=== PATIENT | female | born 1965 | race Caucasian/White ===

== ENCOUNTER 2018-09-17 21:15 | Emergency (ER) | payer OTHER ==
[~2018-09-17] VITALS: Ht 162.6 cm; Wt 104.3 kg
[~2018-09-17 21:15] MED LIST: ACID MED; ALBU3IS INH; ALBU90OI INH; ALBU90OI6 INH; ALBU90OI61 INH; AMLO10 PO; AZIT250 PO; AZIT500 PO; CEPH500 PO; CETI10 PO; CITA20 PO; CLIN300 PO; CODACE30 PO; Crutch1 EACH MISC; DICL25ER PO; DOCU100 PO; ERYT333ERA PO; FAMO20 PO; FLUSAL2505 IH; HYDACE5 PO; HYDACE5325 PO; HYDHCL25 PO; IBUP800 PO; KETO10 PO; LAVAP17G PO; META800 PO; METF500; METF500 PO; METF500C PO; METO10 PO; METO25ER PO; METO50 PO; METO50ER PO; Macrobid 100 M100 MG PO; Mobic7.5 MG PO; NAPR500 PO; NAPR550; Norco 5-325 Ta1 EACH PO; OFLO.3OPSO OP; OMEP20ER PO; ONDA4 PO; OXYACE5T PO; PANT20 PO; POLY17UD PO; PRED20 PO; PRED5 PO; PROACE100 PO; PROM25 PO; PSEU120ER PO; Prilosec Otc20 MG PO; Pyridium100 MG PO; RANI150 PO; RXCODACET PO; RXHYD5325 PO; RXHYDACE PO; RXPROACE PO; RXPROM25 PO; SIMV10 PO; SUCR1SU PO; Ultram50 MG PO; VARE1 PO; Vibramycin100 MG PO; XYZAL; Zithromax250 MG PO
[2018-09-18] MEDS ORDERED: ALBU90OI INH (00:44)
[2018-09-18] MEDS ORDERED: Norvasc5 MG PO (00:44)
== END 2018-09-18 00:57 | disposition home or self-care (01) ==
LOC: ER 21:15
DX: K59.00 Constipation, unspecified (principal); I11.9 Hypertensive heart disease without heart failure; I43 Cardiomyopathy in diseases classified elsewhere; E11.40 Type 2 diabetes mellitus with diabetic neuropathy, unspecified; Z88.0 Allergy status to penicillin; Z88.1 Allergy status to other antibiotic agents; Z88.8 Allergy status to other drugs, medicaments and biological substances; F17.200 Nicotine dependence, unspecified, uncomplicated
CPT/HCPCS: 74019; 99283-25

== ENCOUNTER 2018-10-22 14:02 | Emergency (ER) | payer OTHER ==
[~2018-10-22] VITALS: Ht 162.6 cm; Wt 84.8 kg
[~2018-10-22 14:02] MED LIST changes: +Norvasc5 MG PO
[2018-10-22] MEDS ORDERED: Chantix1 EACH (14:27)
[2018-10-22] MEDS ORDERED: SPIRIVA RESPIMAT4 GM IH (14:27)
[2018-10-22] MEDS ORDERED: ALBU90OI6 INH (14:27)
[2018-10-22] MEDS ORDERED: METF500C PO (14:27)
[2018-10-22 15:00] LABS: BASOPHILS ABSOLUTE AUTO 0.04 K/mm3 (0.00-0.23); BASOPHILS PERCENT AUTO 0 % (0-2); EOSINOPHILS ABSOLUTE AUTO 0.11 K/mm3 (0.00-0.68); EOSINOPHILS PERCENT AUTO 1 % (0-6); Hematocrit 44.1 % (33.0-51.0); Hemoglobin 14.7 g/dL (11.5-16.0); IMMATURE GRAN ABSOLUTE AUTO 0.04 K/mm3 (0.00-0.10); IMMATURE GRAN PERCENT AUTO 0 % (0-1); LYMPHOCYTES ABSOLUTE AUTO 1.79 K/mm3 (0.84-5.20); LYMPHOCYTES PERCENT AUTO 17 % (21-46); MONOCYTES ABSOLUTE AUTO 0.82 K/mm3 (0.16-1.47); MONOCYTES PERCENT AUTO 8 % (4-13); Mean Corpuscular HGB 29.1 pg (26.0-34.0); Mean Corpuscular HGB Conc 33.3 g/dL (31.5-36.5); Mean Corpuscular Volume 87 fL (80-100); Mean Platelet Volume 11.9 fL (9.1-12.4); NEUTROPHILS ABSOLUTE AUTO 8.05 K/mm3 (1.96-9.15); NEUTROPHILS PERCENT AUTO 74 % (41-73); Platelet Count 212 K/mm3 (150-400); RDW Coefficient Variation 14.1 % (11.7-14.2); RDW Standard Deviation 44.9 fL (35.1-46.3); Red Blood Cell Count 5.06 M/mm3 (3.80-5.20); White Blood Cell Count 10.85 K/mm3 (4.00-11.30)
[2018-10-22 15:11] LABS: Troponin I <0.015 ng/mL (0.000-0.040)
[2018-10-22 15:12] LABS: Alanine Aminotransfer (ALT/SGP 24 U/L (12-78); Albumin, Blood 3.8 g/dL (3.4-5.0); Alk Phos 93 U/L (50-136); Anion Gap 11 mmol/L (6-16); Aspartate Aminotrans (AST/SGOT 19 U/L (12-37); Bilirubin, Total 0.3 mg/dL (0.1-1.0); Blood Urea Nitrogen 10 mg/dL (8-24); Bun/Creatinine Ratio 12.2 (12.0-20.0); CO2, Blood 22 mmol/L (21-32); Calcium, Blood 8.5 mg/dL (8.5-10.1); Chloride, Blood 106 mmol/L (98-108); Creatinine, Blood 0.82 mg/dL (0.40-1.00); Glomerular Filtration Rate >60 (60-); Glucose, Blood 205 mg/dL (70-99); Potassium, Blood 3.3 mmol/L (3.5-5.5); Sodium, Blood 139 mmol/L (136-145); Total Protein, Blood 7.8 g/dL (6.4-8.2)
[2018-10-22 16:26] LABS: Source, Urine Voided
[2018-10-22 16:31] LABS: Bilirubin, Urine Neg (Neg); Blood, Urine Neg (Neg); Glucose Qualitative, Urine 1+ (Neg); Ketones, Urine Neg (Neg); Leukocyte Esterase, Urine Neg (Neg); Nitrite, Urine Neg (Neg); Protein, Urine Neg (Neg); Specific Gravity, Urine 1.015 (1.003-1.022); Urobilinogen, Urine NORM (Normal)
[2018-10-22 16:47] LABS: Appearance, Urine Clear (Clear); Color, Urine Yellow (P-Yellow)
[2018-10-22] MEDS ORDERED: OMEPRAZOLE MAGN20 MG PO (18:25)
== END 2018-10-22 18:45 | disposition home or self-care (01) ==
LOC: ER 14:02
PROVIDERS: Emergency Medicine
DX: R07.9 Chest pain, unspecified (principal); E11.40 Type 2 diabetes mellitus with diabetic neuropathy, unspecified; J44.9 Chronic obstructive pulmonary disease, unspecified; I11.9 Hypertensive heart disease without heart failure; I43 Cardiomyopathy in diseases classified elsewhere; F17.210 Nicotine dependence, cigarettes, uncomplicated; Z87.11 Personal history of peptic ulcer disease; Z88.0 Allergy status to penicillin; Z88.1 Allergy status to other antibiotic agents; Z88.8 Allergy status to other drugs, medicaments and biological substances; Z79.899 Other long term (current) drug therapy; Z79.84 Long term (current) use of oral hypoglycemic drugs
CPT/HCPCS: 36415; 71046; 80053; 81003; 83690; 83880; 84484; 85025; 93005; 93010; 96361; 96374; 99285-25; J2405; J7030

== ENCOUNTER 2018-12-02 08:42 | Day surgery (SDC) | payer OTHER ==
[~2018-12-02] VITALS: Ht 162.6 cm; Wt 107.7 kg
[~2018-12-02 08:42] MED LIST changes: +Chantix1 EACH; +OMEPRAZOLE MAGN20 MG PO; +SPIRIVA RESPIMAT4 GM IH
== END 2018-12-02 11:02 | disposition home or self-care (01) ==
LOC: ORSCSDS 08:42
PROVIDERS: Surgery
PROC: 0DBK8ZX Excision of Ascending Colon, Via Natural or Artificial Opening Endoscopic, Diagnostic (ICD-10-PCS; principal; 2018-12-02 10:15)
DX: R19.4 Change in bowel habit (principal); D12.2 Benign neoplasm of ascending colon; Z80.0 Family history of malignant neoplasm of digestive organs; E11.9 Type 2 diabetes mellitus without complications; I10 Essential (primary) hypertension; E66.9 Obesity, unspecified; Z68.39 Body mass index [BMI] 39.0-39.9, adult; K21.9 Gastro-esophageal reflux disease without esophagitis; J44.9 Chronic obstructive pulmonary disease, unspecified; E66.01 Morbid (severe) obesity due to excess calories; Z68.41 Body mass index [BMI] 40.0-44.9, adult; F17.210 Nicotine dependence, cigarettes, uncomplicated; Z79.899 Other long term (current) drug therapy
CPT/HCPCS: 82947; 88305; J2250; J2704; J7120

== ENCOUNTER 2019-02-05 19:30 | Emergency (ER) | payer OTHER ==
[~2019-02-05] VITALS: Ht 165.1 cm; Wt 83.9 kg
[2019-02-05] MEDS ORDERED: Norco 5-325 Ta1 EACH PO (21:56)
== END 2019-02-05 22:35 | disposition home or self-care (01) ==
LOC: ER 19:30
DX: M25.561 Pain in right knee (principal); M79.661 Pain in right lower leg; Z88.1 Allergy status to other antibiotic agents; Z88.0 Allergy status to penicillin; Z88.5 Allergy status to narcotic agent; Z79.899 Other long term (current) drug therapy; Z79.84 Long term (current) use of oral hypoglycemic drugs; E11.9 Type 2 diabetes mellitus without complications; J44.9 Chronic obstructive pulmonary disease, unspecified; I10 Essential (primary) hypertension; F17.210 Nicotine dependence, cigarettes, uncomplicated
CPT/HCPCS: 93971; 99283-25; A9270-GY

== ENCOUNTER 2019-05-07 12:04 | Emergency (ER) | payer OTHER ==
[~2019-05-07] VITALS: Ht 165.1 cm; Wt 104.3 kg
[2019-05-07] MEDS ORDERED: Cipro500 MG PO (12:24)
[2019-05-07] MEDS ORDERED: TRAM50 PO (12:25)
== END 2019-05-07 13:02 | disposition home or self-care (01) ==
LOC: ER 12:04
DX: K04.7 Periapical abscess without sinus (principal); K02.9 Dental caries, unspecified; E11.40 Type 2 diabetes mellitus with diabetic neuropathy, unspecified; I10 Essential (primary) hypertension; J44.9 Chronic obstructive pulmonary disease, unspecified; F17.210 Nicotine dependence, cigarettes, uncomplicated; Z88.8 Allergy status to other drugs, medicaments and biological substances; Z88.0 Allergy status to penicillin; Z88.1 Allergy status to other antibiotic agents; Z79.899 Other long term (current) drug therapy; Z79.84 Long term (current) use of oral hypoglycemic drugs; Z79.51 Long term (current) use of inhaled steroids
CPT/HCPCS: 64400; 96372-59; 99282-25; J1885

== ENCOUNTER 2019-06-18 19:04 | Inpatient (IN) | payer OTHER ==
[~2019-06-18] VITALS: Ht 167.6 cm; Wt 106.9 kg
[~2019-06-18 19:04] MED LIST changes: +Cipro500 MG PO; +TRAM50 PO
[2019-06-18 20:19] LABS: BASOPHILS ABSOLUTE AUTO 0.06 K/mm3 (0.00-0.23); BASOPHILS PERCENT AUTO 1 % (0-2); EOSINOPHILS ABSOLUTE AUTO 0.17 K/mm3 (0.00-0.68); EOSINOPHILS PERCENT AUTO 2 % (0-6); Hematocrit 41.4 % (33.0-51.0); Hemoglobin 13.4 g/dL (11.5-16.0); IMMATURE GRAN ABSOLUTE AUTO 0.07 K/mm3 (0.00-0.10); IMMATURE GRAN PERCENT AUTO 1 % (0-1); LYMPHOCYTES ABSOLUTE AUTO 2.72 K/mm3 (0.84-5.20); LYMPHOCYTES PERCENT AUTO 24 % (21-46); MONOCYTES ABSOLUTE AUTO 0.99 K/mm3 (0.16-1.47); MONOCYTES PERCENT AUTO 9 % (4-13); Mean Corpuscular HGB 28.2 pg (26.0-34.0); Mean Corpuscular HGB Conc 32.4 g/dL (31.5-36.5); Mean Corpuscular Volume 87 fL (80-100); Mean Platelet Volume 12.2 fL (9.1-12.4); NEUTROPHILS ABSOLUTE AUTO 7.35 K/mm3 (1.96-9.15); NEUTROPHILS PERCENT AUTO 65 % (41-73); Platelet Count 242 K/mm3 (150-400); RDW Coefficient Variation 15.2 % (11.7-14.2); RDW Standard Deviation 48.4 fL (35.1-46.3); Red Blood Cell Count 4.76 M/mm3 (3.80-5.20); White Blood Cell Count 11.36 K/mm3 (4.00-11.30)
[2019-06-18 20:33] LABS: Alanine Aminotransfer (ALT/SGP 21 U/L (12-78); Albumin, Blood 3.4 g/dL (3.4-5.0); Albumin/Globulin Ratio 0.9 (0.8-1.8); Alk Phos 78 U/L (50-136); Anion Gap 7 mmol/L (6-16); Aspartate Aminotrans (AST/SGOT 19 U/L (12-37); Bilirubin, Total 0.3 mg/dL (0.1-1.0); Blood Urea Nitrogen 10 mg/dL (8-24); CO2, Blood 25 mmol/L (21-32); Calcium, Blood 8.3 mg/dL (8.5-10.1); Chloride, Blood 107 mmol/L (98-108); Creatinine, Blood 0.77 mg/dL (0.40-1.00); Globulin, Blood 3.8 g/dL (2.2-4.0); Glomerular Filtration Rate >60 (60-); Glucose, Blood 212 mg/dL (70-99); Potassium, Blood 3.6 mmol/L (3.5-5.5); Sodium, Blood 139 mmol/L (136-145); Total Protein, Blood 7.2 g/dL (6.4-8.2)
--- NOTE | 2019-06-19 01:41 | NUR ---
06/19/19 0129 PT C/O MID-STERNAL CHEST PAIN AND REFUSED ANY MORE NTG. SHE STATED THE ER TOLD HER SHE WOULD GET IV PAIN MEDICINE WHEN SHE ARRIVED ON MEDICAL FLOOR. PT VERY ANGRY. RN GAVE IV FENTANYL PER JUL. PT THEN C/O NAUSEA AND WAS MEDICATED PER JUL.
--- NOTE | 2019-06-19 03:20 | NUR ---
06/19/19 0310 PT AWAKE AND MEDICATED FOR NAUSEA WITH NEW MED PER JUL. STATES CHEST DISCOMFORT BETTER AT "5" NOW. PT HAD REFUSED ANY FURTHER NITROGYLERINE GIVEN. RESTING IN BED. DOZING OFF.
[2019-06-19 04:55] LABS: Hematocrit 43.6 % (33.0-51.0); Hemoglobin 14.1 g/dL (11.5-16.0); Mean Corpuscular HGB 28.1 pg (26.0-34.0); Mean Corpuscular HGB Conc 32.3 g/dL (31.5-36.5); Mean Corpuscular Volume 87 fL (80-100); Mean Platelet Volume 11.3 fL (9.1-12.4); Platelet Count 253 K/mm3 (150-400); RDW Standard Deviation 48.1 fL (35.1-46.3); Red Blood Cell Count 5.02 M/mm3 (3.80-5.20); White Blood Cell Count 14.98 K/mm3 (4.00-11.30)
[2019-06-19 05:20] LABS: Alanine Aminotransfer (ALT/SGP 24 U/L (12-78); Albumin, Blood 3.5 g/dL (3.4-5.0); Albumin/Globulin Ratio 0.8 (0.8-1.8); Alk Phos 87 U/L (50-136); Anion Gap 7 mmol/L (6-16); Aspartate Aminotrans (AST/SGOT 55 U/L (12-37); Bilirubin, Total 0.3 mg/dL (0.1-1.0); Blood Urea Nitrogen 9 mg/dL (8-24); Bun/Creatinine Ratio 14.5 (12.0-20.0); CO2, Blood 21 mmol/L (21-32); Calcium, Blood 8.4 mg/dL (8.5-10.1); Chloride, Blood 108 mmol/L (98-108); Creatinine, Blood 0.62 mg/dL (0.40-1.00); Globulin, Blood 4.4 g/dL (2.2-4.0); Glomerular Filtration Rate >60 (60-); Glucose, Blood 207 mg/dL (70-99); Potassium, Blood 3.8 mmol/L (3.5-5.5); Sodium, Blood 136 mmol/L (136-145); Total Protein, Blood 7.9 g/dL (6.4-8.2)
[2019-06-19 05:49] LABS: Troponin I 3.2 ng/mL (0.000-0.040)
--- NOTE | 2019-06-19 06:03 | NUR ---
PT HAD REFUSED HER AM LAB DRAW. THIS RN WENT AND SPOKE TO PT AND ASKED HER WHY. PT STATED SHE HAD JUST WOKE UP AND WAS NOT SURE WHAT WAS GOING ON. PT DI AGREE AGREE TO HAVE LAB DRAW AND WAS EXPLAINED OF THE IMPORTANCE OF LAB TEST. PT ALSO AGREED TO TAKE SOME MALLOX IN ATTEMPT TO REDUCE GASTRIC DISCOMFORT. THIS EVENT OCCURED AT 0430 HRS.
[2019-06-19 06:06] LABS: Creatine Kinase MB 39.9 ng/mL (0.0-3.6); Creatine Kinase MB Index 13.6 (0.0-4.0)
--- NOTE | 2019-06-19 07:04 | NUR ---
06/19/19 0648 TRANSFERRED VIA BED TO PCU 4 PER MD ORDER. INFORMED PT PRIOR OF TRANSFER AND REASONS WHY. PT STATES CHEST DISCOMFORT AT LEVEL "3" NOW. REPORT GIVEN TO [employer]. SEE NEW ORDERS.
--- NOTE | 2019-06-19 07:25 | NUR ---
RECEIVED REPORT FROM [facility] RN. PT TRANSPORTED TO PCU. REPORT GIVEN TO BRIDGETT ALLRED RN. PT MADE COMFORTABLE, CALL LIGHT AND POSSESSIONS IN REACH.
[2019-06-19 07:42] LABS: International Normalized Ratio 0.96; Prothrombin Time Results 10.3 Sec (9.7-11.5)
--- NOTE | 2019-06-19 17:58 | NUR ---
PCU DAYSHIFT SUMMARY PATIENT ALERT AND ORIENTED X4 T/O SHIFT. RESP E/U ON ROOM AIR. PATIENT REMAINS IN NSR WITH NO CARDIAC EVENTS POST CATH. HR 70'S. PATIENT RECIEVED [address] [facility]. RIGHT RADIAL SITE HAS MILD BRUISING NOTED PROXIMAL TO SITE. PATIENT REMAINS ON ROOM AIR WITH STAND BY TO BATHROOM. PATIENT EDUCATED ON SMOKING CESSATION. PATIENT DENIES ANY PAIN POST CATH. WILL CONTINUE TO MONITOR AND GIVE REPORT TO NOC SHIFT RN.
--- NOTE | 2019-06-19 19:25 | NUR ---
RECEIVED REPORT FROM SHANAE ALLRED. ASSUMED CARE OF PT. RESTING IN BED COMFORTABLY, IN NO ACUTE DISTRESS. DENIES CHEST PAIN, SOB. DENIES ANY NEEDS AT THIS TIME. CALL LIGHT AND POSSESSIONS IN REACH. WILL CONTINUE TO MONITOR.
[2019-06-20 04:13] LABS: BASOPHILS ABSOLUTE AUTO 0.03 K/mm3 (0.00-0.23); BASOPHILS PERCENT AUTO 0 % (0-2); EOSINOPHILS ABSOLUTE AUTO 0.09 K/mm3 (0.00-0.68); EOSINOPHILS PERCENT AUTO 1 % (0-6); Hematocrit 38.7 % (33.0-51.0); Hemoglobin 12.4 g/dL (11.5-16.0); IMMATURE GRAN ABSOLUTE AUTO 0.04 K/mm3 (0.00-0.10); IMMATURE GRAN PERCENT AUTO 1 % (0-1); LYMPHOCYTES ABSOLUTE AUTO 2.54 K/mm3 (0.84-5.20); LYMPHOCYTES PERCENT AUTO 29 % (21-46); MONOCYTES ABSOLUTE AUTO 0.89 K/mm3 (0.16-1.47); MONOCYTES PERCENT AUTO 10 % (4-13); Mean Corpuscular HGB 27.9 pg (26.0-34.0); Mean Corpuscular Volume 87 fL (80-100); Mean Platelet Volume 11.5 fL (9.1-12.4); NEUTROPHILS ABSOLUTE AUTO 5.17 K/mm3 (1.96-9.15); NEUTROPHILS PERCENT AUTO 59 % (41-73); Platelet Count 213 K/mm3 (150-400); RDW Coefficient Variation 15.1 % (11.7-14.2); RDW Standard Deviation 48.4 fL (35.1-46.3); Red Blood Cell Count 4.44 M/mm3 (3.80-5.20); White Blood Cell Count 8.76 K/mm3 (4.00-11.30)
[2019-06-20 04:28] LABS: Anion Gap 5 mmol/L (6-16); Blood Urea Nitrogen 10 mg/dL (8-24); Bun/Creatinine Ratio 12.8 (12.0-20.0); CO2, Blood 26 mmol/L (21-32); Calcium, Blood 8.1 mg/dL (8.5-10.1); Chloride, Blood 111 mmol/L (98-108); Creatinine, Blood 0.78 mg/dL (0.40-1.00); Glomerular Filtration Rate >60 (60-); Glucose, Blood 90 mg/dL (70-99); Potassium, Blood 3.6 mmol/L (3.5-5.5); Sodium, Blood 142 mmol/L (136-145)
--- NOTE | 2019-06-20 06:41 | NUR ---
PT RESTING IN BED COMFORTABLY, IN NO ACUTE DISTRESS. SLEPT T/O NIGHT. WAS MONITORED EVERY 1-2 HOURS WITH NEEDS MET, DENIES ANY NEEDS AT THIS TIME. CALL LIGHT AND POSSESSIONS IN REACH.
[2019-06-20] MEDS ORDERED: CLOP75 PO (09:40)
[2019-06-20] MEDS ORDERED: ASPI81CH PO (09:40)
[2019-06-20] MEDS ORDERED: LOSA25 PO (09:41)
[2019-06-20] MEDS ORDERED: NICO21TP TOP (09:41)
[2019-06-20] MEDS ORDERED: ATORVASTATIN CA40 M1 PO (09:42)
[2019-06-20] MEDS ORDERED: NITR.4SL SL (09:42)
[2019-06-20] MEDS ORDERED: METO25ER PO (09:43)
--- NOTE | 2019-06-20 12:39 | NUR ---
D/C D/C TO HOME WITH . PT IS A&O X4, VSS, RESP UNLABORED, DENIES CP/SOB AT THIS TIME. D/C INSTRUCTIONS PROVIDED, RX CALLED INTO PHARMACY OF CHOICE BY BREAST SPLITTER, PT ENC TO F/U ALINE FOR ANY PROBLEMS OR CONCERNS. PT ESCORTED TO PRIVATE VEHICLE VIA W/C.
== END 2019-06-20 11:48 | disposition home or self-care (01) | DRG 247 ==
LOC: ER 19:04 → MEDS 19:05 → PCU 06-19 06:58
PROVIDERS: Emergency Medicine; Internal Medicine; ADMIT Internal Medicine
PROC: 4A023N7 Measurement of Cardiac Sampling and Pressure, Left Heart, Percutaneous Approach (ICD-10-PCS; principal; 2019-06-19)
PROC: 027034Z Dilation of Coronary Artery, One Artery with Drug-eluting Intraluminal Device, Percutaneous Approach (ICD-10-PCS; 2019-06-19)
PROC: B211YZZ Fluoroscopy of Multiple Coronary Arteries using Other Contrast (ICD-10-PCS; 2019-06-19)
DX: I21.3 ST elevation (STEMI) myocardial infarction of unspecified site (principal); I42.9 Cardiomyopathy, unspecified; I10 Essential (primary) hypertension; I25.110 Atherosclerotic heart disease of native coronary artery with unstable angina pectoris; E11.40 Type 2 diabetes mellitus with diabetic neuropathy, unspecified; F17.210 Nicotine dependence, cigarettes, uncomplicated; Z79.82 Long term (current) use of aspirin
CPT/HCPCS: 36415; 71046; 80048; 80053; 82550; 82553; 82947; 84484; 85025; 85027; 85347; 85610; 85730; 93005; 93010; 93454; 96361; 96374; 96375; 96376; 99152; 99153; 99285-25; A9270-GY; C1725; C1751; C1769; C1874; C1887; C1894; C9600; G0378; J0360; J1644; J2250; J2405; J2765; J3010; J7030; Q9967

== ENCOUNTER 2019-06-29 22:21 | Emergency (ER) | payer OTHER ==
[~2019-06-29] VITALS: Ht 167.6 cm; Wt 107.0 kg
[~2019-06-29 22:21] MED LIST changes: +ASPI81CH PO; +ATORVASTATIN CA40 M1 PO; +CLOP75 PO; +LOSA25 PO; +NICO21TP TOP; +NITR.4SL SL
[2019-06-29 23:04] LABS: BASOPHILS ABSOLUTE AUTO 0.05 K/mm3 (0.00-0.23); BASOPHILS PERCENT AUTO 1 % (0-2); EOSINOPHILS ABSOLUTE AUTO 0.15 K/mm3 (0.00-0.68); EOSINOPHILS PERCENT AUTO 2 % (0-6); Hemoglobin 12.9 g/dL (11.5-16.0); IMMATURE GRAN ABSOLUTE AUTO 0.06 K/mm3 (0.00-0.10); IMMATURE GRAN PERCENT AUTO 1 % (0-1); LYMPHOCYTES PERCENT AUTO 21 % (21-46); MONOCYTES ABSOLUTE AUTO 0.83 K/mm3 (0.16-1.47); MONOCYTES PERCENT AUTO 8 % (4-13); Mean Corpuscular HGB 28.1 pg (26.0-34.0); Mean Corpuscular HGB Conc 32.3 g/dL (31.5-36.5); Mean Corpuscular Volume 87 fL (80-100); NEUTROPHILS ABSOLUTE AUTO 6.74 K/mm3 (1.96-9.15); NEUTROPHILS PERCENT AUTO 68 % (41-73); RDW Coefficient Variation 14.7 % (11.7-14.2); RDW Standard Deviation 47.3 fL (35.1-46.3); Red Blood Cell Count 4.59 M/mm3 (3.80-5.20); White Blood Cell Count 9.93 K/mm3 (4.00-11.30)
[2019-06-29 23:05] LABS: Mean Platelet Volume 11.8 fL (9.1-12.4); Platelet Count 210 K/mm3 (150-400)
[2019-06-29 23:15] LABS: Alanine Aminotransfer (ALT/SGP 15 U/L (12-78); Albumin, Blood 3.2 g/dL (3.4-5.0); Albumin/Globulin Ratio 0.7 (0.8-1.8); Alk Phos 89 U/L (50-136); Anion Gap 6 mmol/L (6-16); Aspartate Aminotrans (AST/SGOT 23 U/L (12-37); Bilirubin, Total 0.3 mg/dL (0.1-1.0); Blood Urea Nitrogen 14 mg/dL (8-24); Bun/Creatinine Ratio 16.5 (12.0-20.0); CO2, Blood 29 mmol/L (21-32); Calcium, Blood 8.7 mg/dL (8.5-10.1); Chloride, Blood 106 mmol/L (98-108); Creatinine, Blood 0.85 mg/dL (0.40-1.00); Globulin, Blood 4.3 g/dL (2.2-4.0); Glomerular Filtration Rate >60 (60-); Glucose, Blood 158 mg/dL (70-99); Potassium, Blood 4.1 mmol/L (3.5-5.5); Sodium, Blood 141 mmol/L (136-145); Total Protein, Blood 7.5 g/dL (6.4-8.2); Troponin I 0.048 ng/mL (0.000-0.040)
== END 2019-06-30 03:18 | disposition home or self-care (01) ==
LOC: ER 22:21
PROVIDERS: Emergency Medicine
DX: R07.9 Chest pain, unspecified (principal); E11.40 Type 2 diabetes mellitus with diabetic neuropathy, unspecified; J44.9 Chronic obstructive pulmonary disease, unspecified; I10 Essential (primary) hypertension; I42.9 Cardiomyopathy, unspecified; F17.210 Nicotine dependence, cigarettes, uncomplicated; Z79.84 Long term (current) use of oral hypoglycemic drugs; Z79.51 Long term (current) use of inhaled steroids; Z79.899 Other long term (current) drug therapy; Z88.0 Allergy status to penicillin; Z88.1 Allergy status to other antibiotic agents; Z88.5 Allergy status to narcotic agent; Z88.8 Allergy status to other drugs, medicaments and biological substances
CPT/HCPCS: 36415; 80053; 84484; 85025; 93005; 93010; 96374; 96375; 99285-25; J2270; J2405

== ENCOUNTER 2019-07-05 18:13 | Emergency (ER) | payer OTHER ==
[~2019-07-05] VITALS: Ht 167.6 cm; Wt 105.2 kg
[2019-07-05] MEDS ORDERED: Norco 5-325 Ta1 EACH PO (19:57)
== END 2019-07-05 20:10 | disposition home or self-care (01) ==
LOC: ER 18:13
DX: I82.612 Acute embolism and thrombosis of superficial veins of left upper extremity (principal); E11.40 Type 2 diabetes mellitus with diabetic neuropathy, unspecified; K21.9 Gastro-esophageal reflux disease without esophagitis; E78.5 Hyperlipidemia, unspecified; J44.9 Chronic obstructive pulmonary disease, unspecified; F17.210 Nicotine dependence, cigarettes, uncomplicated; Z79.899 Other long term (current) drug therapy; Z88.0 Allergy status to penicillin; Z88.5 Allergy status to narcotic agent; Z79.84 Long term (current) use of oral hypoglycemic drugs
CPT/HCPCS: 93971; 99283-25

== ENCOUNTER 2019-12-18 19:24 | Emergency (ER) | payer OTHER ==
[~2019-12-18] VITALS: Ht 167.6 cm; Wt 106.1 kg
[2019-12-18] MEDS ORDERED: KETO10 PO (20:05)
[2019-12-18] MEDS ORDERED: Cipro500 MG PO (20:05)
== END 2019-12-18 20:31 | disposition home or self-care (01) ==
LOC: ER 19:24
DX: K02.9 Dental caries, unspecified (principal); K03.81 Cracked tooth; Z88.0 Allergy status to penicillin; Z88.1 Allergy status to other antibiotic agents; Z88.5 Allergy status to narcotic agent; Z88.8 Allergy status to other drugs, medicaments and biological substances; Z79.84 Long term (current) use of oral hypoglycemic drugs; Z79.899 Other long term (current) drug therapy; Z79.82 Long term (current) use of aspirin; Z79.02 Long term (current) use of antithrombotics/antiplatelets; Z79.2 Long term (current) use of antibiotics; E11.40 Type 2 diabetes mellitus with diabetic neuropathy, unspecified; J44.9 Chronic obstructive pulmonary disease, unspecified; I11.9 Hypertensive heart disease without heart failure; I43 Cardiomyopathy in diseases classified elsewhere; F17.210 Nicotine dependence, cigarettes, uncomplicated
CPT/HCPCS: 96374; 99282-25; J1885

== ENCOUNTER 2020-04-03 11:43 | Emergency (ER) | payer OTHER ==
[~2020-04-03] VITALS: Ht 167.6 cm; Wt 96.6 kg
[2020-04-03 13:10] LABS: BASOPHILS ABSOLUTE AUTO 0.05 K/mm3 (0.00-0.23); BASOPHILS PERCENT AUTO 1 % (0-2); EOSINOPHILS ABSOLUTE AUTO 0.16 K/mm3 (0.00-0.68); EOSINOPHILS PERCENT AUTO 2 % (0-6); Hematocrit 28.7 % (33.0-51.0); Hemoglobin 7.7 g/dL (11.5-16.0); IMMATURE GRAN ABSOLUTE AUTO 0.03 K/mm3 (0.00-0.10); IMMATURE GRAN PERCENT AUTO 0 % (0-1); LYMPHOCYTES ABSOLUTE AUTO 1.87 K/mm3 (0.84-5.20); LYMPHOCYTES PERCENT AUTO 26 % (21-46); MONOCYTES ABSOLUTE AUTO 0.74 K/mm3 (0.16-1.47); MONOCYTES PERCENT AUTO 10 % (4-13); Mean Corpuscular HGB 18.4 pg (26.0-34.0); Mean Corpuscular HGB Conc 26.8 g/dL (31.5-36.5); Mean Corpuscular Volume 69 fL (80-100); NEUTROPHILS ABSOLUTE AUTO 4.45 K/mm3 (1.96-9.15); NEUTROPHILS PERCENT AUTO 61 % (41-73); Platelet Count 239 K/mm3 (150-400); RDW Coefficient Variation 20.2 % (11.7-14.2); RDW Standard Deviation 49.2 fL (35.1-46.3); Red Blood Cell Count 4.18 M/mm3 (3.80-5.20)
[2020-04-03 13:11] LABS: Mean Platelet Volume 10.4 fL (9.1-12.4)
[2020-04-03 13:25] LABS: Alanine Aminotransfer (ALT/SGP 14 U/L (12-78); Albumin, Blood 3.5 g/dL (3.4-5.0); Albumin/Globulin Ratio 0.8 (0.8-1.8); Alk Phos 93 U/L (50-136); Anion Gap 3 mmol/L (6-16); Aspartate Aminotrans (AST/SGOT 17 U/L (12-37); Bilirubin, Total 0.4 mg/dL (0.1-1.0); Blood Urea Nitrogen 11 mg/dL (8-24); Bun/Creatinine Ratio 12.9 (12.0-20.0); CO2, Blood 30 mmol/L (21-32); Calcium, Blood 9.2 mg/dL (8.5-10.1); Chloride, Blood 109 mmol/L (98-108); Creatinine, Blood 0.86 mg/dL (0.40-1.00); Globulin, Blood 4.3 g/dL (2.2-4.0); Glomerular Filtration Rate >60 (60-); Glucose, Blood 101 mg/dL (70-99); Potassium, Blood 3.8 mmol/L (3.5-5.5); Sodium, Blood 142 mmol/L (136-145); Total Protein, Blood 7.8 g/dL (6.4-8.2); Troponin I <0.015 ng/mL (0.000-0.040)
[2020-04-03] MEDS ORDERED: TIZA4 PO (16:34)
[2020-04-03] MEDS ORDERED: ACET500 PO (16:34)
== END 2020-04-03 16:59 | disposition home or self-care (01) ==
LOC: ER 11:43
PROVIDERS: Physician Assistant
DX: M54.12 Radiculopathy, cervical region (principal); E11.40 Type 2 diabetes mellitus with diabetic neuropathy, unspecified; K21.9 Gastro-esophageal reflux disease without esophagitis; E78.5 Hyperlipidemia, unspecified; F17.210 Nicotine dependence, cigarettes, uncomplicated; Z79.899 Other long term (current) drug therapy; Z79.82 Long term (current) use of aspirin; Z79.02 Long term (current) use of antithrombotics/antiplatelets; Z79.84 Long term (current) use of oral hypoglycemic drugs
CPT/HCPCS: 36415; 71046; 80053; 84484; 85025; 93005; 93010; 99283-25; A9270

== ENCOUNTER 2020-04-21 20:27 | Observation (INO) | payer OTHER ==
[~2020-04-21] VITALS: Ht 167.6 cm; Wt 102.1 kg
[~2020-04-21 20:27] MED LIST changes: +ACET500 PO; -ASPI81CH PO; +Aspirin EC81 MG PO; +TIZA4 PO
[2020-04-21 20:46] LABS: BASOPHILS ABSOLUTE AUTO 0.05 K/mm3 (0.00-0.23); BASOPHILS PERCENT AUTO 0 % (0-2); EOSINOPHILS PERCENT AUTO 1 % (0-6); Hematocrit 26.5 % (33.0-51.0); IMMATURE GRAN ABSOLUTE AUTO 0.08 K/mm3 (0.00-0.10); IMMATURE GRAN PERCENT AUTO 1 % (0-1); LYMPHOCYTES ABSOLUTE AUTO 1.61 K/mm3 (0.84-5.20); LYMPHOCYTES PERCENT AUTO 14 % (21-46); MONOCYTES ABSOLUTE AUTO 0.73 K/mm3 (0.16-1.47); MONOCYTES PERCENT AUTO 6 % (4-13); Mean Corpuscular HGB 18.3 pg (26.0-34.0); Mean Corpuscular HGB Conc 26.4 g/dL (31.5-36.5); Mean Corpuscular Volume 69 fL (80-100); Mean Platelet Volume 10.5 fL (9.1-12.4); NEUTROPHILS ABSOLUTE AUTO 9.34 K/mm3 (1.96-9.15); NEUTROPHILS PERCENT AUTO 79 % (41-73); Platelet Count 253 K/mm3 (150-400); RDW Coefficient Variation 21.3 % (11.7-14.2); RDW Standard Deviation 52.9 fL (35.1-46.3); Red Blood Cell Count 3.82 M/mm3 (3.80-5.20); White Blood Cell Count 11.91 K/mm3 (4.00-11.30)
[2020-04-21 21:00] LABS: Bun/Creatinine Ratio 12.8 (12.0-20.0); Calcium, Blood 8.6 mg/dL (8.5-10.1); Creatinine, Blood 1.09 mg/dL (0.40-1.00); Potassium, Blood 3.6 mmol/L (3.5-5.5)
[2020-04-21 21:16] LABS: Source, Urine Clean Catch
[2020-04-21 21:19] LABS: Appearance, Urine Clear (Clear); Bilirubin, Urine Neg (Neg); Blood, Urine Neg (Neg); Color, Urine Yellow (P-Yellow); Glucose Qualitative, Urine Neg (Neg); Ketones, Urine Neg (Neg); Leukocyte Esterase, Urine Neg (Neg); Nitrite, Urine Neg (Neg); Protein, Urine 2+ (Neg); Specific Gravity, Urine 1.015 (1.003-1.022); Urobilinogen, Urine NORM (Normal)
[2020-04-21 21:25] LABS: Bacteria Rare /hpf; Mucus Light (0-Heavy); Red Blood Cells, Urine 0-2 /hpf (0-2); Squamous Epithelial Cells Few /hpf (Few); White Blood Cells, Urine 0-2 /hpf (0-5)
[2020-04-21 21:36] LABS: Albumin, Blood 3.4 g/dL (3.4-5.0); Albumin/Globulin Ratio 0.8 (0.8-1.8); Bilirubin, Direct 0.1 mg/dL (0.0-0.3); Bilirubin, Indirect 0.3 mg/dL (0.1-0.7); Bilirubin, Total 0.4 mg/dL (0.1-1.0); Total Protein, Blood 7.4 g/dL (6.4-8.2)
[2020-04-21] MEDS ORDERED: OMEP20ER PO (21:40)
[2020-04-21 23:18] LABS: Percent Saturation 4.8 % (15.0-50.0)
--- NOTE | 2020-04-22 05:47 | NUR ---
SHIFT SUMMARY PATIENT ARRIVED TO ROOM 304 VIA STRETCHER WITH ONE UNIT OF PRBC'S INFUSING. PATIENT IS ALERT AND ORIENTED, JUST SLIGHTLY UNDSTEADY ON HER FEET. SHE HAD NO COMPLAINTS OF PAIN, NAUSEA, OR SHORTNESS OF BREATH. ALTHOUGH HER LUNGS DID HAVE INSPIRATORY WHEEZING PRESENT. IV PATENT AND FLUSHED. BED IN LOWEST POSITION WITH WHEELS LOCKED. CALL LIGHT WITHIN REACH. REPORT GIVEN TO ONCOMING RN.
[2020-04-22 06:25] LABS: BASOPHILS ABSOLUTE AUTO 0.04 K/mm3 (0.00-0.23); BASOPHILS PERCENT AUTO 0 % (0-2); EOSINOPHILS PERCENT AUTO 1 % (0-6); Hematocrit 27.1 % (33.0-51.0); Hemoglobin 7.6 g/dL (11.5-16.0); IMMATURE GRAN ABSOLUTE AUTO 0.05 K/mm3 (0.00-0.10); IMMATURE GRAN PERCENT AUTO 1 % (0-1); LYMPHOCYTES ABSOLUTE AUTO 1.79 K/mm3 (0.84-5.20); LYMPHOCYTES PERCENT AUTO 17 % (21-46); MONOCYTES ABSOLUTE AUTO 0.89 K/mm3 (0.16-1.47); MONOCYTES PERCENT AUTO 8 % (4-13); Mean Corpuscular HGB 20.2 pg (26.0-34.0); Mean Corpuscular Volume 72 fL (80-100); Mean Platelet Volume 10.1 fL (9.1-12.4); NEUTROPHILS ABSOLUTE AUTO 7.69 K/mm3 (1.96-9.15); NEUTROPHILS PERCENT AUTO 73 % (41-73); Platelet Count 204 K/mm3 (150-400); RDW Coefficient Variation 22.8 % (11.7-14.2); RDW Standard Deviation 58.8 fL (35.1-46.3); Red Blood Cell Count 3.76 M/mm3 (3.80-5.20); White Blood Cell Count 10.56 K/mm3 (4.00-11.30)
[2020-04-22 06:46] LABS: Anion Gap 6 mmol/L (6-16); Blood Urea Nitrogen 11 mg/dL (8-24); Bun/Creatinine Ratio 13.3 (12.0-20.0); CO2, Blood 28 mmol/L (21-32); Calcium, Blood 8.4 mg/dL (8.5-10.1); Chloride, Blood 109 mmol/L (98-108); Creatinine, Blood 0.83 mg/dL (0.40-1.00); Glomerular Filtration Rate >60 (60-); Glucose, Blood 87 mg/dL (70-99); Potassium, Blood 3.5 mmol/L (3.5-5.5); Sodium, Blood 143 mmol/L (136-145); Troponin I <0.015 ng/mL (0.000-0.040)
[2020-04-22] MEDS ORDERED: FERRIC X-150150 M1 PO (11:38)
--- NOTE | 2020-04-22 12:14 | NUR ---
DISCHARGE NOTE PATIENT ALERT AND ORIENTED THROUGHOUT THIS SHIFT. PATIENT STATES SHE FEELS MUCH BETTER AFTER PRBC ADMINISTRATION. PATIENT STATES SHE WASN'T EVEN ABLE TO USE A PEN BEFORE RECEIVING BLOOD. PATIENT INDEPENDENT IN THE ROOM. PATIENT DENIES PAIN OR DISCOMFORT. BREATHING REGULAR AND EVEN. PATIENT DRESSED INDEPENDENTLY. IV REMOVED PRIOR TO DISCHARGE. PATIENT STATES UNDERSTANDING OF DISCHARGE INSTRUCTIONS. PATIENT TO VEHICLE VIA WHEELCHAIR BY RN.
== END 2020-04-22 11:52 | disposition home or self-care (01) ==
LOC: ER 20:27 → MEDS 20:28
PROVIDERS: Student in an Organized Health Care Education/Training Program; ADMIT Internal Medicine
PROC: 30233N1 Transfusion of Nonautologous Red Blood Cells into Peripheral Vein, Percutaneous Approach (ICD-10-PCS; principal; 2020-04-21)
DX: D64.9 Anemia, unspecified (principal); J44.9 Chronic obstructive pulmonary disease, unspecified; E11.40 Type 2 diabetes mellitus with diabetic neuropathy, unspecified; K21.9 Gastro-esophageal reflux disease without esophagitis; E78.5 Hyperlipidemia, unspecified; I42.9 Cardiomyopathy, unspecified; F17.210 Nicotine dependence, cigarettes, uncomplicated; I25.2 Old myocardial infarction; I25.10 Atherosclerotic heart disease of native coronary artery without angina pectoris; Z88.0 Allergy status to penicillin; Z88.1 Allergy status to other antibiotic agents; Z88.5 Allergy status to narcotic agent; Z88.8 Allergy status to other drugs, medicaments and biological substances; Z79.84 Long term (current) use of oral hypoglycemic drugs; Z79.51 Long term (current) use of inhaled steroids; Z79.82 Long term (current) use of aspirin; Z79.02 Long term (current) use of antithrombotics/antiplatelets; Z79.899 Other long term (current) drug therapy; Z23 Encounter for immunization; Z95.5 Presence of coronary angioplasty implant and graft
CPT/HCPCS: 36415; 36430; 70450; 80048; 80076; 81001; 82607; 82728; 82746; 82947; 83540; 83550; 84484; 85025; 86850; 86900; 86901; 86920; 93005; 93010; 94760; 96361; 96374-59; 99285-25; A9270; A9270-GY; G0008; G0378; J2550; J7030; P9016; Q2038

== ENCOUNTER 2024-10-14 08:39 | Inpatient (IN) | payer MEDICAID ==
[~2024-10-14] VITALS: Ht 160 cm; Wt 89.1 kg
[~2024-10-14 08:39] MED LIST changes: +FERRIC X-150150 M1 PO
[2024-10-14] MEDS ORDERED: Amiodarone HCl200 MG PO (08:57)
[2024-10-14 10:37] LABS: BASOPHILS ABSOLUTE AUTO 0.04 K/mm3 (0.00-0.23); BASOPHILS PERCENT AUTO 1 % (0-2); EOSINOPHILS ABSOLUTE AUTO 0.09 K/mm3 (0.00-0.68); EOSINOPHILS PERCENT AUTO 1 % (0-6); Hematocrit 24.4 % (33.0-51.0); IMMATURE GRAN ABSOLUTE AUTO 0.03 K/mm3 (0.00-0.10); IMMATURE GRAN PERCENT AUTO 0 % (0-1); LYMPHOCYTES ABSOLUTE AUTO 1.03 K/mm3 (0.84-5.20); LYMPHOCYTES PERCENT AUTO 14 % (21-46); MONOCYTES ABSOLUTE AUTO 0.67 K/mm3 (0.16-1.47); MONOCYTES PERCENT AUTO 9 % (4-13); Mean Corpuscular HGB 28.7 pg (26.0-34.0); Mean Corpuscular HGB Conc 28.7 g/dL (31.5-36.5); Mean Corpuscular Volume 100 fL (80-100); Mean Platelet Volume 9.9 fL (9.1-12.4); NEUTROPHILS ABSOLUTE AUTO 5.43 K/mm3 (1.96-9.15); NEUTROPHILS PERCENT AUTO 75 % (41-73); Platelet Count 357 K/mm3 (150-400); RDW Standard Deviation 92.5 fL (35.1-46.3); Red Blood Cell Count 2.44 M/mm3 (3.80-5.20); White Blood Cell Count 7.29 K/mm3 (4.00-11.30)
[2024-10-14 10:53] LABS: Albumin, Blood 2.2 g/dL (3.4-5.0); Albumin/Globulin Ratio 0.6 (0.8-1.8); Bilirubin, Total 0.5 mg/dL (0.1-1.0); Bun/Creatinine Ratio 13.4 (12.0-20.0); Calcium, Blood 8.3 mg/dL (8.5-10.1); Creatinine, Blood 1.19 mg/dL (0.40-1.00); Globulin, Blood 3.7 g/dL (2.2-4.0); Potassium, Blood 3.7 mmol/L (3.5-5.5); Total Protein, Blood 5.9 g/dL (6.4-8.2)
[2024-10-14] MEDS ORDERED: NS 1,000 ML IV SCH (11:35)
[2024-10-14] MEDS ORDERED: OxyCODONE 7.5 mg/Acetam 325 mg TABLET PO ONE ×2 (12:50→17:55)
[2024-10-14] MEDS ORDERED: FentaNYL Citrate 50 MCG/ML 2 ML Injection IV PRN (21:45)
[2024-10-14] MEDS ORDERED: Ondansetron HCl 2 MG / ML 2ML Vial IV PRN (22:45)
[2024-10-14 23:37] LABS: Hematocrit 28.8 % (33.0-51.0); Hemoglobin 8.8 g/dL (11.5-16.0)
[2024-10-15] VITALS (18 sets, daily range): BP systolic 104–138; BP diastolic 54–92
[2024-10-15] MEDS ORDERED: ATOR80 PO (00:57)
[2024-10-15] MEDS ORDERED: CARV3.125 PO (00:57)
[2024-10-15] MEDS ORDERED: LINZESS145 MCG PO (00:58)
[2024-10-15] MEDS ORDERED: FURO20 PO (00:58)
[2024-10-15] MEDS ORDERED: Isosorbide Mono30 MG PO (00:58)
[2024-10-15] MEDS ORDERED: PANT20 PO (00:59)
[2024-10-15] MEDS ORDERED: OXYC5 PO (00:59)
[2024-10-15] MEDS ORDERED: NARCAN4 M1 (00:59)
[2024-10-15] MEDS ORDERED: FT SENNA-S 8.61 EACH PO (01:00)
[2024-10-15] MEDS ORDERED: EFFIENT10 MG PO (01:00)
[2024-10-15] MEDS ORDERED: SYMBICORT 160-4.6 GM INH (01:01)
[2024-10-15] MEDS ORDERED: Albumin (Human) 25gm/100ml 100 ML IV ONE (01:15)
[2024-10-15] MEDS ORDERED: NS 1,000 ML BAG IR SCH (01:35)
[2024-10-15] MEDS ORDERED: OxyCODONE HCL 5 MG TAB PO PRN (01:35)
[2024-10-15] MEDS ORDERED: NS 250 ML IV PRN (01:40)
[2024-10-15] MEDS ORDERED: NS 1,000 ML IV SCH (01:55)
[2024-10-15 03:34] LABS: BASOPHILS ABSOLUTE AUTO 0.03 K/mm3 (0.00-0.23); BASOPHILS PERCENT AUTO 1 % (0-2); EOSINOPHILS ABSOLUTE AUTO 0.05 K/mm3 (0.00-0.68); EOSINOPHILS PERCENT AUTO 1 % (0-6); Hematocrit 25.2 % (33.0-51.0); Hemoglobin 7.9 g/dL (11.5-16.0); IMMATURE GRAN ABSOLUTE AUTO 0.02 K/mm3 (0.00-0.10); IMMATURE GRAN PERCENT AUTO 0 % (0-1); LYMPHOCYTES ABSOLUTE AUTO 1.22 K/mm3 (0.84-5.20); LYMPHOCYTES PERCENT AUTO 20 % (21-46); MONOCYTES ABSOLUTE AUTO 0.62 K/mm3 (0.16-1.47); MONOCYTES PERCENT AUTO 10 % (4-13); Mean Corpuscular HGB 29.2 pg (26.0-34.0); Mean Corpuscular HGB Conc 31.3 g/dL (31.5-36.5); Mean Platelet Volume 9.5 fL (9.1-12.4); NEUTROPHILS PERCENT AUTO 68 % (41-73); Platelet Count 250 K/mm3 (150-400); RDW Standard Deviation 80.1 fL (35.1-46.3); Red Blood Cell Count 2.71 M/mm3 (3.80-5.20); White Blood Cell Count 6.14 K/mm3 (4.00-11.30)
[2024-10-15 03:43] LABS: Mean Corpuscular Volume 93 fL (80-100)
[2024-10-15 03:54] LABS: Albumin, Blood 2.5 g/dL (3.4-5.0); Albumin/Globulin Ratio 0.8 (0.8-1.8); Bilirubin, Total 1.2 mg/dL (0.1-1.0); Bun/Creatinine Ratio 16.7 (12.0-20.0); Creatinine, Blood 1.08 mg/dL (0.40-1.00); Potassium, Blood 3.5 mmol/L (3.5-5.5); Total Protein, Blood 5.5 g/dL (6.4-8.2)
[2024-10-15 07:24] LABS: Hemoglobin 8.3 g/dL (11.5-16.0)
[2024-10-15] MEDS ORDERED: Insulin Human Lispro 100 Units/ML 3ML Syringe SC SCH (07:30)
[2024-10-15] MEDS ORDERED: Polyethylene Glycol 3350 17 gm PO PRN (14:00)
[2024-10-15] MEDS ORDERED: Lactulose 20 GM/30 ML UDC PO ONE (14:05)
[2024-10-15 14:13] LABS: Hematocrit 27.2 % (33.0-51.0); Hemoglobin 8.5 g/dL (11.5-16.0)
[2024-10-15] MEDS ORDERED: LevonorgestreL 1 EACH IUD VAG ONE (17:10)
--- NOTE | 2024-10-15 17:43 | NUR ---
asssumed care of pt. pt is a/o x 4 pleasent but in pain and distress over her bleeding, vss and lab work is better than previous draw. awaiting for any upsates and possible transfer to facility that can provide advanced care for pt condition. pt medicated for pain. call light within reach.
--- NOTE | 2024-10-15 17:46 | NUR ---
spoke with Dr Mcclellan who is preparing to do procedure for pt to stop or slow her vaginal bleeding. pt is aware and spoke with MD. pt given sips of prune juice to assist with constipation, MD stated she would disimpact pt if needed during procedure. call light within reach makes needs known.
[2024-10-15] MEDS ORDERED: Midazolam HCl 1MG / ML 2ML Vial ONE (17:52)
[2024-10-15] MEDS ORDERED: FentaNYL Citrate 50 MCG/ML 2 ML Injection ONE ×3 (17:52→18:07)
--- NOTE | 2024-10-15 17:53 | NUR ---
purwic in place heavy bleeding with large half dollar size clots noted pt vital signs remain stable, pt has no s/s of distress but does continue to have pain.
--- NOTE | 2024-10-15 17:54 | NUR ---
1730 pt taken down for sx.
[2024-10-15] MEDS ORDERED: propofoL 20 ML IV ONE (18:02)
[2024-10-15] MEDS ORDERED: Phenylephrine HCl 100 MCG/ML-NS 10MLSYR (1MG/10ML) ONE (18:10)
[2024-10-15] MEDS ORDERED: FentaNYL Citrate 50 MCG/ML 2 ML Injection IV PRN ×2 (18:20→18:25)
[2024-10-15] MEDS ORDERED: HYDROmorphone HCl/Pf 1MG SYR IV PRN ×2 (18:20→18:25)
[2024-10-15] MEDS ORDERED: Ondansetron HCl 2 MG / ML 2ML Vial IV PRN (18:20)
--- NOTE | 2024-10-15 18:20 | NUR ---
10/15/24 1820 Kailyn Marie IUD PLACED AT 181
[2024-10-15] MEDS ORDERED: HYDROmorphone HCl/Pf 1MG SYR ONE (18:43)
[2024-10-15] MEDS ORDERED: Docusate Sodium/Senna 1 Tab PO SCH (21:00)
[2024-10-16] VITALS (8 sets, daily range): BP systolic 98–128; BP diastolic 42–91
--- NOTE | 2024-10-16 04:48 | NUR ---
10/15/241914 [facility] Patient is awake and cooperative. Pt has no IV access and 2 attempts made for IV. Pt is painful, C/O lower abd cramping, oral pain med given. Pt taking sips of water. Pt with large loose brown stool, incontinent then up to the commode. minimal to no blood seen at this time.
--- NOTE | 2024-10-16 05:10 | NUR ---
Rn summary: Patient has been alert and oriented all shift. Pt did have IV placed via ultrasound. Pt has rested well until 0200. Pt up to BSC urinated, small tinge of blood in attends. Pt was medicated with 50mcg of fentayal and rested fairly well. Up to BSC again at 0515. Loose brown/green stool. Scant blood on wipe most likely from rectum. Patient having lower abd pain, very tender to touch. Also burning with urination. Pt medicated with oxy 5 mg for pain 7/10 after getting to bed. Pt has 2 small open areas to upper rt buttuck and top of sacrum. small mepilex applied. When up rt foot is pink, left is white. Both are edemetous. Call light in reach. Will continue to monitor.
[2024-10-16 06:40] LABS: Hematocrit 26.3 % (33.0-51.0); Hemoglobin 8.1 g/dL (11.5-16.0); Mean Corpuscular HGB 29.2 pg (26.0-34.0); Mean Corpuscular HGB Conc 30.8 g/dL (31.5-36.5); Mean Corpuscular Volume 95 fL (80-100); Platelet Count 297 K/mm3 (150-400); RDW Coefficient Variation 23.5 % (11.7-14.2); RDW Standard Deviation 81.9 fL (35.1-46.3); Red Blood Cell Count 2.77 M/mm3 (3.80-5.20); White Blood Cell Count 9.67 K/mm3 (4.00-11.30)
[2024-10-16 07:02] LABS: Albumin, Blood 2.2 g/dL (3.4-5.0); Anion Gap 7 mmol/L (3-11); Blood Urea Nitrogen 13 mg/dL (8-24); Bun/Creatinine Ratio 12.7 (12.0-20.0); CO2, Blood 29 mmol/L (21-32); Calcium, Blood 8.3 mg/dL (8.5-10.1); Chloride, Blood 103 mmol/L (98-108); Creatinine, Blood 1.02 mg/dL (0.40-1.00); Glomerular Filtration Rate 64 (60-); Glucose, Blood 112 mg/dL (70-99); Magnesium, Blood 2.2 mg/dL (1.6-2.4); Potassium, Blood 3.1 mmol/L (3.5-5.5); Sodium, Blood 136 mmol/L (136-145)
[2024-10-16] MEDS ORDERED: Potassium Chloride 20 MEQ TabCR PO ONE (07:30)
[2024-10-16] MEDS ORDERED: Enoxaparin 80 MG/0.8 ML SYR SC SCH (12:32)
--- NOTE | 2024-10-16 16:10 | NUR ---
ASSUMED CARE OF PT. PT IS A/O X4 PT STATES SHE IS DOING MUCH BETTER TODAY, THERE HAS BEEN NO SIGNIFICANT BLEEDING NOTED, pain not as intense and has been better liberty today. lower extremity cont 3+ edema, pulses poorly felt. call light within reach pt able to make needs known.
--- NOTE | 2024-10-16 16:29 | NUR ---
received medical hx from [facility] in [facility]. notes are in chart and we are awaiting for LIV Carter.
--- NOTE | 2024-10-16 16:33 | NUR ---
pt enc to get out of bed and is now sitting up at bedside in reclyner.
[2024-10-17] MEDS ORDERED: Melatonin 5 MG Tablet PO PRN (01:25)
[2024-10-17 03:49] VITALS: BP 116/59
--- NOTE | 2024-10-17 04:58 | NUR ---
SHIFT SUMMARY PT REMAINS A&OX4. VSS ON RA. ON TELE NSR IN 80s. PT C/O 6/7-10 PAIN THROUGHOUT NIGHT. PRN RAVI GIVEN WITH GOOD RELIEF. PT UP TO BSC WITH SBA. SCANT BLEEDING ON DEPENDS. VERY SMALL STRANDS OF BLOOD NOTICED IN ONE VOID THROUGHOUT NIGHT. PT C/O PITTING EDEMA IN BLE. WILL PASS ALONG TO DAY SHIFT TO SEE IF TEAM WANTS TO RESTART HER LASIX THAT SHE TAKES AT HOME. NO FURTHER QUESTIONS OR CONCERNS AT THIS TIME. WILL CONTINUE WITH PLAN OF CARE.
[2024-10-17 05:42] LABS: Hematocrit 24.8 % (33.0-51.0); Hemoglobin 7.6 g/dL (11.5-16.0); Mean Corpuscular HGB 29.5 pg (26.0-34.0); Mean Corpuscular HGB Conc 30.6 g/dL (31.5-36.5); Mean Corpuscular Volume 96 fL (80-100); Mean Platelet Volume 9.8 fL (9.1-12.4); Platelet Count 246 K/mm3 (150-400); RDW Coefficient Variation 22.9 % (11.7-14.2); RDW Standard Deviation 81.1 fL (35.1-46.3); Red Blood Cell Count 2.58 M/mm3 (3.80-5.20); White Blood Cell Count 6.34 K/mm3 (4.00-11.30)
[2024-10-17 07:34] VITALS: BP 118/42
[2024-10-17] MEDS ORDERED: Furosemide 20 MG Tab PO SCH (09:25)
[2024-10-17 15:43] VITALS: BP 124/66
--- NOTE | 2024-10-17 17:49 | NUR ---
ASSUMED CARE OF PT. PT DID VERY WELL TODAY AND STATED SHE FELT MUCH BETTER AND WANTED TO GO HOME BUT, MD PLAN MADE FOR PT TO START BLOOD THINNER THIS EVENING AND HOPEFULLY LEAVE TOMORROW IF BLOOD WORK WNL. PT AGREED WITH PLAN. PT HAVING ABD PAIN WHICH HAS BEEN CHRONIC, POSSIBLE DUE TO CONSDTIPATION OR ONGOING PROBLEM DUE TO CURRENT HEALTH CONDITION, PT WAS GIVEN STOOL SOFTENER WITH PAIN MEDICATION. CALL LIGHT WITHIN REACH PT APPROPRIATE WITH CARE. WILL CONT TO MONITOR.
[2024-10-17 20:24] VITALS: BP 113/52
[2024-10-17 20:31] LABS: Hematocrit 27.4 % (33.0-51.0); Hemoglobin 8.2 g/dL (11.5-16.0)
[2024-10-17 23:53] VITALS: BP 104/53
--- NOTE | 2024-10-18 03:56 | NUR ---
SHIFT SUMMARY 58 YR F ADMITTED ON 10/15/24. FULL CODE. NO ACUTE CHANGES THIS SHIFT. PER PT, SHE HAS HAD VERY MINIMAL BLEEDING THIS SHIFT, JUST ENOUGH TO TURN HER URINE SLIGHTLY PINK. PER PT AND DAY SHIFT NURSE, PT HAD A VERY LARGE "BLOWOUT" BM EARLIER IN THE DAY SO EVENING STOOL SOFTENERS WERE HELD. PT IS C/O LOWER ABDOMINAL PAIN AT A 6/7 AND IS BEING MEDICATED PER EMAR. SHE IS VERY PLEASANT AND COOPERATIVE WITH CARE. CALLS APPROPRIATELY FOR ASSISTANCE.
[2024-10-18 04:18] VITALS: BP 120/62
--- NOTE | 2024-10-18 05:55 | NUR ---
PT STATES THAT THE LAST TIME SHE WENT TO THE BATHROOM @ 0500, SHE URINATED AND HAD A BM AND STATED THERE WAS NO BLOOD AT ALL.
[2024-10-18 06:07] LABS: Hematocrit 26.4 % (33.0-51.0); Mean Corpuscular HGB 29.2 pg (26.0-34.0); Mean Corpuscular HGB Conc 30.3 g/dL (31.5-36.5); Mean Corpuscular Volume 96 fL (80-100); Platelet Count 275 K/mm3 (150-400); RDW Coefficient Variation 22.1 % (11.7-14.2); RDW Standard Deviation 79.2 fL (35.1-46.3); Red Blood Cell Count 2.74 M/mm3 (3.80-5.20); White Blood Cell Count 5.74 K/mm3 (4.00-11.30)
[2024-10-18 06:30] LABS: Bun/Creatinine Ratio 10.6 (12.0-20.0); Creatinine, Blood 1.04 mg/dL (0.40-1.00); Potassium, Blood 3.4 mmol/L (3.5-5.5)
[2024-10-18] MEDS ORDERED: Potassium Chloride 20 MEQ TabCR PO ONE (07:25)
[2024-10-18 07:53] VITALS: BP 105/54
[2024-10-18] MEDS ORDERED: Apixaban 5 MG Tab PO SCH (09:00)
[2024-10-18] MEDS ORDERED: ELIQUIS5 M2 PO (11:37)
[2024-10-18] MEDS ORDERED: MIRALAX11910 PO (11:38)
--- NOTE | 2024-10-18 12:15 | NUR ---
Shift summary and Discharge Patient alert and interactive. patient able to ambulate with minimal assistance. patient states bleeding scant if any. Patient to discharge home. discharge instructions reviewed with patient and . belongings sent with patient. Room check done prior to discharge. patient taken out via wheelchair. IV and tele removed prior to discharge.
== END 2024-10-18 12:43 | disposition home or self-care (01) | DRG 744 ==
LOC: ER 08:39 → MEDS 08:40 → ENPENDDIS 10-18 11:28 → MEDS 10-18 12:43
PROVIDERS: Emergency Medicine; Family Medicine; Internal Medicine; Obstetrics & Gynecology; ADMIT Internal Medicine
PROC: 30233N1 Transfusion of Nonautologous Red Blood Cells into Peripheral Vein, Percutaneous Approach (ICD-10-PCS; principal; 2024-10-14)
PROC: 0UDB7ZZ Extraction of Endometrium, Via Natural or Artificial Opening (ICD-10-PCS; 2024-10-15)
PROC: 0UH97HZ Insertion of Contraceptive Device into Uterus, Via Natural or Artificial Opening (ICD-10-PCS; 2024-10-15)
PROC: 0DCP7ZZ Extirpation of Matter from Rectum, Via Natural or Artificial Opening (ICD-10-PCS; 2024-10-15)
PROC: 30233J1 Transfusion of Nonautologous Serum Albumin into Peripheral Vein, Percutaneous Approach (ICD-10-PCS; 2024-10-15)
DX: C54.1 Malignant neoplasm of endometrium (principal); C79.60 Secondary malignant neoplasm of unspecified ovary; D62 Acute posthemorrhagic anemia; I82.412 Acute embolism and thrombosis of left femoral vein; C55 Malignant neoplasm of uterus, part unspecified; N95.0 Postmenopausal bleeding; E11.40 Type 2 diabetes mellitus with diabetic neuropathy, unspecified; K21.9 Gastro-esophageal reflux disease without esophagitis; E78.5 Hyperlipidemia, unspecified; J44.9 Chronic obstructive pulmonary disease, unspecified; I25.10 Atherosclerotic heart disease of native coronary artery without angina pectoris; F17.210 Nicotine dependence, cigarettes, uncomplicated; I11.0 Hypertensive heart disease with heart failure; K56.41 Fecal impaction; I50.9 Heart failure, unspecified; I25.5 Ischemic cardiomyopathy; N28.9 Disorder of kidney and ureter, unspecified; K60.2 Anal fissure, unspecified; E87.6 Hypokalemia; E66.9 Obesity, unspecified; Z88.0 Allergy status to penicillin; Z88.1 Allergy status to other antibiotic agents; Z88.8 Allergy status to other drugs, medicaments and biological substances; Z88.5 Allergy status to narcotic agent; Z79.84 Long term (current) use of oral hypoglycemic drugs; Z79.51 Long term (current) use of inhaled steroids; Z79.82 Long term (current) use of aspirin; Z95.5 Presence of coronary angioplasty implant and graft; Z90.49 Acquired absence of other specified parts of digestive tract; I25.2 Old myocardial infarction; Z79.01 Long term (current) use of anticoagulants; Z87.19 Personal history of other diseases of the digestive system
CPT/HCPCS: 36415; 36430; 71260; 74177; 76830; 76856; 80048; 80053; 80069; 82947; 83735; 83880; 85014; 85018; 85025; 85027; 86850; 86900; 86901; 86923; 93306; 93971; 94760; 96365; 96374-59; 96375; 96376; 99285-25; A6590; A9270; G0378; J1171; J1650; J2250; J2371; J2405; J2704; J3010; J7030; J7297; P9016; P9047; Q9967

== ENCOUNTER 2024-12-19 19:04 | Emergency (ER) | payer SELFPAY ==
[~2024-12-19] VITALS: Ht 162.6 cm; Wt 83.9 kg
[~2024-12-19 19:04] MED LIST changes: +ASCORBIC ACID500 MG PO; +ASPI81CH PO; +ATOR80 PO; +Amiodarone HCl200 MG PO; +CARV3.125 PO; +Cleocin HCl150 MG PO; +EFFIENT10 MG PO; +ELIQUIS5 M2 PO; +FERSU300 PO; +FT SENNA-S 8.61 EACH PO; +Isosorbide Mono30 MG PO; +JARDIANCE10 MG PO; +LACT PO; +LINZESS145 MCG PO; +Lasix40 MG PO; +MIRALAX11910 PO; +MUPIROCIN1 G1 TOP; +NARCAN4 M1; +OXAYDO5 M1 PO; +OXYC5 PO; +POTA10T PO; +SYMBICORT 160-4.6 GM INH
[2024-12-19 20:03] LABS: BASOPHILS ABSOLUTE AUTO 0.05 K/mm3 (0.00-0.23); BASOPHILS PERCENT AUTO 1 % (0-2); EOSINOPHILS ABSOLUTE AUTO 0.07 K/mm3 (0.00-0.68); EOSINOPHILS PERCENT AUTO 1 % (0-6); Hematocrit 21.3 % (33.0-51.0); Hemoglobin 6.2 g/dL (11.5-16.0); IMMATURE GRAN ABSOLUTE AUTO 0.04 K/mm3 (0.00-0.10); IMMATURE GRAN PERCENT AUTO 0 % (0-1); LYMPHOCYTES ABSOLUTE AUTO 1.68 K/mm3 (0.84-5.20); LYMPHOCYTES PERCENT AUTO 17 % (21-46); MONOCYTES ABSOLUTE AUTO 1.01 K/mm3 (0.16-1.47); MONOCYTES PERCENT AUTO 10 % (4-13); Mean Corpuscular HGB Conc 29.1 g/dL (31.5-36.5); Mean Corpuscular Volume 93 fL (80-100); NEUTROPHILS ABSOLUTE AUTO 7.17 K/mm3 (1.96-9.15); NEUTROPHILS PERCENT AUTO 72 % (41-73); NRBC ABSOLUTE 0.00 K/mm3 (0.00-0.02); NRBC Auto 0.0 /100 WBC (0.0-0.2); Platelet Count 350 K/mm3 (150-400); RDW Coefficient Variation 18.9 % (11.7-14.2); RDW Standard Deviation 64.9 fL (35.1-46.3)
[2024-12-19 20:20] LABS: Alanine Aminotransfer (ALT/SGP 7.0 U/L (12-78); Albumin, Blood 2.0 g/dL (3.4-5.0); Albumin/Globulin Ratio 0.5 (0.8-1.8); Anion Gap 9.0 mmol/L (3-11); Aspartate Aminotrans (AST/SGOT 19.0 U/L (12-37); Bilirubin, Total 0.5 mg/dL (0.1-1.0); Blood Urea Nitrogen 13.0 mg/dL (8-24); CO2, Blood 22.0 mmol/L (21-32); Calcium, Blood 7.4 mg/dL (8.5-10.1); Chloride, Blood 109.0 mmol/L (98-108); Creatinine, Blood 1.39 mg/dL (0.40-1.00); Globulin, Blood 4.0 g/dL (2.2-4.0); Glucose, Blood 92.0 mg/dL (70-99); Potassium, Blood 4.3 mmol/L (3.5-5.5); Sodium, Blood 136.0 mmol/L (136-145); Total Protein, Blood 6.0 g/dL (6.4-8.2)
[2024-12-19 23:30] VITALS: BP 127/49
[2024-12-19] MEDS ORDERED: OxyCODONE 5 mg/Acetamin 325 mg TABLET PO ONE (23:50)
[2024-12-19] MEDS ORDERED: LASIX20 M2 PO (23:57)
[2024-12-20] MEDS ORDERED: Bacitracin Zinc Oint 1GRAM UD Packet TOP ONE (01:00)
[2024-12-20] MEDS ORDERED: NS 1,000 ML IV ONE (01:20)
== END 2024-12-20 06:32 | disposition home or self-care (01) ==
LOC: ER 19:04
PROVIDERS: Student in an Organized Health Care Education/Training Program
DX: D64.9 Anemia, unspecified (principal); R60.0 Localized edema; S91.201A Unspecified open wound of right great toe with damage to nail, initial encounter; X58.XXXA Exposure to other specified factors, initial encounter
CPT/HCPCS: 71046; 80053; 83880; 84484; 85025; 93971; A9270; J1938; J7030